=== PATIENT | male | born 1965 | race Caucasian/White ===

== ENCOUNTER 2024-12-02 07:56 | Inpatient (IN) | payer OTHER ==
[~2024-12-02] VITALS: Ht 177.8 cm; Wt 77.5 kg
[2024-12-02] MEDS ORDERED: NS 1,000 ML IV ONE ×2 (08:14→13:15)
[2024-12-02 08:16] LABS: Calcium, Ionized (POC) 1.66 mmol/L (1.10-1.46); Chloride (POC) 103 mmol/L (98-108); Creatinine (POC) 1.2 mg/dL (0.8-1.3); Glucose (ISTAT POC) 185 mg/dL (70-99); Hemoglobin (POC) 12.6 g/dL (13.5-17.5); Potassium (POC) 4.2 mmol/L (3.5-5.5); Sodium (POC) 136 mmol/L (135-148); Total CO2 (POC) 28 mmol/L (21-32)
[2024-12-02 08:18] LABS: BASOPHILS ABSOLUTE AUTO 0.04 K/mm3 (0.00-0.23); BASOPHILS PERCENT AUTO 0 % (0-2); EOSINOPHILS ABSOLUTE AUTO 0.01 K/mm3 (0.00-0.68); EOSINOPHILS PERCENT AUTO 0 % (0-6); Hematocrit 38.7 % (37.0-53.0); Hemoglobin 12.8 g/dL (13.5-17.5); IMMATURE GRAN ABSOLUTE AUTO 0.21 K/mm3 (0.00-0.10); IMMATURE GRAN PERCENT AUTO 1 % (0-1); LYMPHOCYTES ABSOLUTE AUTO 0.43 K/mm3 (0.84-5.20); LYMPHOCYTES PERCENT AUTO 2 % (21-46); MONOCYTES ABSOLUTE AUTO 0.46 K/mm3 (0.16-1.47); MONOCYTES PERCENT AUTO 3 % (4-13); Mean Corpuscular HGB 30.8 pg (26.0-34.0); Mean Corpuscular HGB Conc 33.1 g/dL (31.5-36.5); Mean Corpuscular Volume 93 fL (80-100); Mean Platelet Volume 11.6 fL (9.1-12.4); NEUTROPHILS ABSOLUTE AUTO 17.52 K/mm3 (1.96-9.15); NEUTROPHILS PERCENT AUTO 94 % (41-73); Platelet Count 138 K/mm3 (150-400); RDW Coefficient Variation 14.7 % (11.7-14.2); RDW Standard Deviation 51.1 fL (35.1-46.3); Red Blood Cell Count 4.15 M/mm3 (4.30-5.90); White Blood Cell Count 18.67 K/mm3 (4.00-11.30)
[2024-12-02] MEDS ORDERED: NS 1,000 ML IV SCH ×3 (08:20→14:00)
[2024-12-02 08:38] LABS: Albumin, Blood 2.2 g/dL (3.4-5.0); Albumin/Globulin Ratio 0.7 (0.8-1.8); Bilirubin, Total 0.4 mg/dL (0.1-1.0); Bun/Creatinine Ratio 37.2 (12.0-20.0); Calcium, Blood 12.7 mg/dL (8.5-10.1); Creatinine, Blood 0.83 mg/dL (0.60-1.20); Globulin, Blood 3.3 g/dL (2.2-4.0); Magnesium, Blood 2.3 mg/dL (1.6-2.4); Potassium, Blood 4.2 mmol/L (3.5-5.5); Total Protein, Blood 5.5 g/dL (6.4-8.2)
[2024-12-02 08:51] LABS: Bicarbonate Venous 25.6 mmol/L (24.0-30.0); PCO2 Venous 52 mmHg (38-42); pH Blood Venous 7.34 (7.34-7.37)
[2024-12-02] MEDS ORDERED: METF500 PO (08:51)
[2024-12-02 08:52] LABS: Base Excess Venous 2.2 mmol/L
[2024-12-02] MEDS ORDERED: TRAZ50 PO (08:52)
[2024-12-02] MEDS ORDERED: GABA300 PO (08:52)
[2024-12-02] MEDS ORDERED: DULO30 PO (08:52)
[2024-12-02] MEDS ORDERED: HYDR1TAB94 PO (08:52)
[2024-12-02] MEDS ORDERED: AZIT500 PO (08:53)
[2024-12-02 09:08] LABS: CORONAVIRUS COVID-19 AG Negative (NEGATIVE); INFLUENZA A AG Negative (NEGATIVE); INFLUENZA B AG Negative (NEGATIVE)
[2024-12-02] MEDS ORDERED: LEVETIRACETAM IV ONE (09:40)
[2024-12-02] MEDS ORDERED: NS IV ONE (09:40)
[2024-12-02] MEDS ORDERED: Ampicillin Sod/Sulbactam Sod 3 GM in NS 100 ML IV ONE (10:25)
[2024-12-02] MEDS ORDERED: Meropenem 2,000 MG in NS 250 ML IV ONE (10:35)
[2024-12-02] MEDS ORDERED: Vancomycin HCL 2,000 MG in NS 500 ML IV ONE (10:40)
[2024-12-02] MEDS ORDERED: FLU VACC TS2024-25(6MOS UP)/PF 45 MCG/0.5 ML SYRINGE IM SCH (13:10)
--- NOTE | 2024-12-02 15:34 | NUR ---
RN TO RN REPORT RECIEVED FROM SIMRAN IN ER AT 1528.
--- NOTE | 2024-12-02 15:55 | NUR ---
"Spiritual Care Consult | ordered by Dr. Slime CARBAJAL Pt. is in the ED awaiting admission to the hospital. Pt is mostly not responsive. Spouse is at bedside and welcomed my visit. Facillitated a life review. Spouse verbalized the circumstances of their journey to [facility]. Listen with empathy and a calming presence. Matters of faiht and belief are considered. Spouse also shared that both she and the Pt. are veterans. Pt. displayed eividence of only minimally understanding our conversation. Prayed for the Pt. Spouse verbalized gratitude for the spiritual care visit."
[2024-12-02 16:06] VITALS: BP 111/71
[2024-12-02] MEDS ORDERED: OxyCODONE 10/Acetamin 325 TABLET PO PRN (16:55)
[2024-12-02] MEDS ORDERED: Nicotine 21 MG PATCH TOP SCH (17:00)
[2024-12-02] MEDS ORDERED: FentaNYL Citrate 50 MCG/ML 2 ML Injection IV PRN (17:20)
[2024-12-02] MEDS ORDERED: Meropenem 2,000 MG in NS 250 ML IV SCH (18:00)
[2024-12-02] MEDS ORDERED: HYDROmorphone HCl/Pf 1MG SYR IV PRN (18:15)
[2024-12-02] MEDS ORDERED: Ondansetron HCl 2 MG / ML 2ML Vial IV PRN (18:15)
[2024-12-02] MEDS ORDERED: LORazepam 1 MG Tab PO PRN (18:20)
[2024-12-02] MEDS ORDERED: Acetaminophen 160MG / 5ML 10.15 UDC PO PRN (18:20)
[2024-12-02] MEDS ORDERED: Haloperidol Lactate 2 MG/ML Conc 1ML Dose PO PRN (18:20)
[2024-12-02] MEDS ORDERED: Acetaminophen 650 MG Supp PR PRN (18:55)
[2024-12-02] MEDS ORDERED: Morphine Sulfate 20 MG/1ML 1 ML Oral Syringe SL PRN (18:55)
[2024-12-02] MEDS ORDERED: Promethazine HCl 25 MG Supp PR PRN (18:55)
[2024-12-02] MEDS ORDERED: Scopolamine Hydrobromide Patch TOP PRN (18:55)
[2024-12-02] MEDS ORDERED: Atropine Sulfate 1% Opth Soln 2ML BTL SL PRN (18:55)
[2024-12-02] MEDS ORDERED: FentaNYL 25 MCG Patch TOP SCH (18:55)
--- NOTE | 2024-12-02 19:03 | NUR ---
ALISON LAYING SUPINE IN BED WITH HIS EYES CLOSED. RESPIRATIONS ARE LABORED WITH ACCESSORY MUSCLE USE, AUDIBLE WHEEZE FROM 5 FT AWAY. WET GURGLE NOTED. ON 2L O2 VIA NC. PPP X4. WEAK PEDAL PULSES. CAP REFILL < 3 SEC. NO MOTTLING NOTED AT THIS TIME. BILAT HANDS COOL TO THE TOUCH. FLACC PAIN SCORE 2/10 AT REST 8/10 WITH MOVEMENT. PRIMARY RN AT BEDSIDE ADMINISTERING ANALGESICS. PT IS ORIENTED TO SELF AND SPOUSE ONLY. STATE[place]", YEAR? [place]" CURRENT LOCATION[place]", "[place]". PT'S SPOUSE ALEENA DOES NOT WANT ALISON TO GO THROUGH ANY MORE TX OR TESTING. ALEENA REPORTS ALISON NEEDING HOSPICE CARE. SHE IS VERY CONFLICTED ABOUT HOME VS HOSPICE FACILITY PLACEMENT. SHE DOES NOT HAVE ANY HELP CARING FOR ALISON AT HOME. REVIEWED GOALS OF CARE WITH DR. WHITE WHOM IS AGREEABLE TO CHANGING PT TO COMFORT CARE STATUS. PHONE CALL PLACED TO DR. PILLAI TO CLARIFY MEDICATIONS ORDERED. OBTAINED NEW VERBAL ORDERS AND PLACED ACCORDINGLY. UPDATE PROVIDED TO PRIMARY RN. PC TO REMAIN AVAILABLE NEEDED.
--- NOTE | 2024-12-02 19:47 | NUR ---
SHIFT SUMMARY PATIENT ARRIVED TO UNIT AT 1604 VIA GURNEY. HE IS MOANING WITH MOVEMENT AND INITIALLY DENIES PAIN BUT THEN TELLS HIS HE DOES ADAIR AND FINALLY STATES HES A 10/. SPEECH GARBLED. HE IS ORIENTED TO SELF BUT NOT HIS YEAR AND HE KNOWS HIS . PATIENT MEDICATED FOR PAIN PER EMAR. DURING SHIFT PATIENT WAS PLACED ON COMFORT CARE. A BEDSIDE. BED IN LOW POSITION, GEORGE PRESTON PROVIDED FOR COMFORT OF PATIENT.
[2024-12-02] MEDS ORDERED: LevETIRAcetam 500 MG Tab PO SCH (21:00)
[2024-12-03] MEDS ORDERED: Vancomycin HCL 1,000 MG in NS 250 ML IV SCH
--- NOTE | 2024-12-03 04:42 | NUR ---
SHIFT SUMMARY NOC PT A/O X 3, FORGETFUL AT TIMES FROM BRAIN [place]. PLEASANT AND COOOPERATIVE WITH CARE. ON COMFORT CARE MEASURES. BEING MEDICATED PER EMAR FOR PAIN AND AGITATION, FENTANYL PATCH IN PLACE LUCW WITH TEGADERM OVER. SPOUSE STAYED NIGHT BEDSIDE. PT DECLINED THOMAS CATHETERINSERTION AT THIS TIME, AND IS USING BEDSIDE URINAL WITH ASSISTENCE. PT REMAINS ON 4L/NC. PT CURRENTLY RESTING WITH BED IN LOWEST POSITION, AND CALL LIGHT WITHIN REACH.
[2024-12-03] MEDS ORDERED: Enoxaparin 40 MG/0.4 ML SYR SC SCH (09:00)
--- NOTE | 2024-12-03 11:02 | NUR ---
"Spiritual Care | Comfort Care | EOL Decisions Pt. is on comofort care and is not responsive. Spouse is at bedside and welcomes my visit. Facilitated an update and re-established rapport with the spouse. Spouse verbalized some questions regarding EOL and clarified that the Pt. is a and she had already been in contact with a 's advocate who is working with her to see that the Pt. is interred [place] [facility] in [place] near his family. EOL Education is given. Listen with empathy and a calming presence. Spouse displays evidence of trust. After EOL Education the spouse verbalized that [facility] would be the home she would choose."
--- NOTE | 2024-12-03 13:43 | NUR ---
Met with pt's this am at pt's bedside. Brandt is tearful, and pt is no longer waking. His breathing is agonal, and he appears to be actively dying. Gently explained this to pt's , who is agreeable to keeping pt here instead of [facility]. Palliative care will continue to provide support.
--- NOTE | 2024-12-03 13:45 | NUR ---
"Spiritual Care | EOL Pt. had passed. Scripture is read and blessing is given. After conferring with Palliative Care the spouse verbally confirmed that [facility] was her choice of home. Spouse verbalized gratitude for the spiritual care visit."
--- NOTE | 2024-12-03 15:35 | NUR ---
PT PASSED @ 1607. THIS NURSE NOTIFIED CHARGE NURSE FOR ASSISTANCE WITH PLANS MOVING FORWARD AND WAS 2ND NURSE FOR VERIFICATION ON . POST MORTUM CARE WAS DONE WITH [facility]ED [facility] AT [facility].
== END 2024-12-03 14:15 | DRG 54 ==
LOC: ER 07:56 → MEDS 15:04
PROVIDERS: Student in an Organized Health Care Education/Training Program; ADMIT Internal Medicine
DX: C79.31 Secondary malignant neoplasm of brain (principal); G93.6 Cerebral edema; J96.01 Acute respiratory failure with hypoxia; E87.20 Acidosis, unspecified; C34.11 Malignant neoplasm of upper lobe, right bronchus or lung; J90 Pleural effusion, not elsewhere classified; C79.51 Secondary malignant neoplasm of bone; M84.58XA Pathological fracture in neoplastic disease, other specified site, initial encounter for fracture; C78.7 Secondary malignant neoplasm of liver and intrahepatic bile duct; Z51.5 Encounter for palliative care; Z66 Do not resuscitate; E83.52 Hypercalcemia; R56.9 Unspecified convulsions; E11.9 Type 2 diabetes mellitus without complications; T38.0X5A Adverse effect of glucocorticoids and synthetic analogues, initial encounter; D72.829 Elevated white blood cell count, unspecified; Z87.891 Personal history of nicotine dependence; Z79.891 Long term (current) use of opiate analgesic; Z79.84 Long term (current) use of oral hypoglycemic drugs
CPT/HCPCS: 36415; 70450; 71260; 80047; 80053; 82306; 82803; 82947; 83605; 83735; 83880; 83970; 84100; 84145; 85014; 85025; 87040; 87077; 87428-QW; 93005; 93010; 96361; 96365-59; 96375-59; 99285-25; A9270; J1953; J2185; J3010; J3370; J7030; J7040; J7050; Q9967